=== PATIENT | male | born 1995 | race Caucasian/White ===

== ENCOUNTER → 2017-09-10 | Outpatient (CLI) | payer OTHER, BC | LOC: M RAD 08:43 | DX: S43.101D Unspecified dislocation of right acromioclavicular joint, subsequent encounter (principal); X58.XXXD Exposure to other specified factors, subsequent encounter; Y92.89 Other specified places as the place of occurrence of the external cause | CPT/HCPCS: 73221 ==

== ENCOUNTER 2017-11-24 14:13 | Outpatient (RCR) | payer OTHER | END 2017-11-26 | LOC: M PT 14:13 | DX: Z47.89 Encounter for other orthopedic aftercare (principal); M54.41 Lumbago with sciatica, right side | CPT/HCPCS: 97110 ==

== ENCOUNTER 2017-12-01 14:27 | Outpatient (RCR) | payer OTHER | END 2017-12-26 | LOC: M PT 14:27 | DX: Z51.89 Encounter for other specified aftercare (principal); M54.5 Low back pain ==

== ENCOUNTER → 2018-01-15 | Outpatient (CLI) | payer OTHER | LOC: M RAD 12:42 | DX: M54.41 Lumbago with sciatica, right side (principal); R93.7 Abnormal findings on diagnostic imaging of other parts of musculoskeletal system | CPT/HCPCS: 72148 ==

== ENCOUNTER 2018-02-01 18:12 | Emergency (ER) | payer OTHER ==
[2018-02-01] MEDS: GI COCKTAIL 50ML BTL(HYOSCYAMINE/MAALOX/LIDOCAINE VISCOUS)(1:3:1) PO (18:39)
[2018-02-01] MEDS: SUCRALFATE 1 GM TAB PO (19:20)
[2018-02-01] MEDS: PANTOPRAZOLE 40MG TAB (PROTONIX) PO (19:20)
== END 2018-02-01 19:20 | disposition home or self-care (01) ==
LOC: M ED 18:12
DX: K29.60 Other gastritis without bleeding (principal); M54.41 Lumbago with sciatica, right side; F17.210 Nicotine dependence, cigarettes, uncomplicated
CPT/HCPCS: 99283

== ENCOUNTER 2018-02-07 17:48 | Emergency (ER) | payer OTHER ==
[2018-02-07] MEDS: OXYCODONE/APAP 5MG/325MG(BULK FOR ED) 1 TABLET PO (19:49)
[2018-02-07] MEDS: KETOROLAC 60 MG/2 ML VIAL (J1885) IM (19:49)
== END 2018-02-07 19:56 | disposition home or self-care (01) ==
LOC: M ED 17:48
DX: M51.9 Unspecified thoracic, thoracolumbar and lumbosacral intervertebral disc disorder (principal); Z72.0 Tobacco use
CPT/HCPCS: J1885

== ENCOUNTER 2018-03-02 09:56 | Emergency (ER) | payer OTHER ==
[2018-03-02] MEDS: PERCOCET 5MG/325MG TAB PO (10:22)
== END 2018-03-02 11:10 | disposition home or self-care (01) ==
LOC: M ED 09:56
DX: M54.41 Lumbago with sciatica, right side (principal); F41.9 Anxiety disorder, unspecified; M51.9 Unspecified thoracic, thoracolumbar and lumbosacral intervertebral disc disorder; Z79.899 Other long term (current) drug therapy
CPT/HCPCS: 99283

== ENCOUNTER 2018-03-23 10:17 | Emergency (ER) | payer OTHER ==
[~2018-03-23] VITALS: Ht 180.3 cm; Wt 80.5 kg
[~2018-03-23 10:17] MED LIST: IBUP80TA PO; PERC5TAB12 PO; PROT1TAB2 PO; SUCR1TA PO
[2018-03-23] MEDS ORDERED: LIDO1PAD (10:26)
--- NOTE | 2018-03-23 11:32 | REP ---
Clinical: Trauma/fall. Technique: Internal rotation, external rotation, and Y view of the right shoulder. Findings: Degenerative changes involving the osseous glenoid rim and greater tuberosity of the humeral head demonstrate degenerative changes which may be related to sports related injuries. Findings include blunting and heterogeneous sclerotic changes. The acromioclavicular joint appears normal. There is no evidence for acute fracture or dislocation. 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 No acute fracture or dislocation. Electronically Signed by Durga Guo MD 03/23/2018 11:22 A
[2018-03-23 13:04] VITALS: BP 132/87
== END 2018-03-23 13:05 | disposition home or self-care (01) ==
LOC: M ED 10:17
DX: M25.511 Pain in right shoulder (principal); F17.210 Nicotine dependence, cigarettes, uncomplicated